=== PATIENT | female | born 1975 | race African-American/Black ===

== ENCOUNTER → 2016-08-02 | Outpatient (CLI) | payer BC, OTHER ==
--- NOTE | ~2016-08-02 | CR126 ---
[facility] A Service of [facility] & [facility] RADIOLOGY TEXT RESULTS PATIENT: DIANA MUNSON LOCATION: [facility] : 75 UNIT #: [id number] AGE: [address]: Generic Doctor NOT IN SYSTEM SEX: F ORDER DR: [id number] [facility] [address] [place], [place] [address] [id number] O MR#: [id number] #: [id number] NAME: DIANA MUNSON : 1975 SEX: F STUDY DATE/TIME: 08/02/2016 15:48 UNIT: [facility] ROOM: STUDY DESCRIPTION: CR Foot Complete Min 3 View Lt Attending Physician: Generic Doctor Not In System Referring Physician: Generic Doctor Not In System Ordering Physician: Staff Doctor Not On Primary Care Physician: No Primary Care Physician MEDICAL IMAGING REPORT This report is preliminary unless electronic signature is present EXAM Left foot. HISTORY Pain, swelling and bruising to the great toe following an injury 2 days ago. TECHNIQUE 3 views of the foot were obtained. FINDINGS The tarsal, metatarsal, and phalangeal elements are all anatomically normal in position and alignment. There are no articular defects. No fractures or radiopaque foreign bodies in the soft tissues are apparent. IMPRESSION Normal left foot. Dictated by... Osmani Virgen M.D. THIS IS AN ELECTRONICALLY VERIFIED REPORT Osmani Virgen M.D. at 08/02/2016 10:17 PM MAKI/sergio TD: 08/02/2016 19:47 JOB #: [id number] MEDICAL IMAGING REPORT Page 1 of 1 COPY
== END | disposition home or self-care (01) ==
LOC: CRAD 15:37
DX: S90.112A Contusion of left great toe without damage to nail, initial encounter (principal); M79.672 Pain in left foot; M79.89 Other specified soft tissue disorders
CPT/HCPCS: 73630